=== PATIENT | male | born 1980 | race Caucasian/White ===

== ENCOUNTER 2016-12-01 19:43 | Emergency (ER) | payer MEDICAID ==
[~2016-12-01] VITALS: Ht 182.9 cm; Wt 77.1 kg
[~2016-12-01 19:43] MED LIST: CLON1TAB3 PO
[2016-12-01 21:05] VITALS: BP 115/71
[2016-12-01] MEDS ORDERED: BACITRACIN TOP OINT 1 UD PKG TOP ONE (23:30)
[2016-12-01] MEDS ORDERED: LIDOCAINE 1% HCL (LOCAL ANESTH.) INJ 20ML MDV IJ ONE (23:30)
[2016-12-02] MEDS ORDERED: TETANUS-DIPTH-ACEL PERTUSSIS 0.5ML SYRG IM ONE (00:15)
[2016-12-02] MEDS ORDERED: CLINDAMYCIN 600 MG/4 ML VL IM ONE (01:30)
== END 2016-12-02 02:23 | disposition home or self-care (01) ==
LOC: ER 19:55
DX: S92.422A Displaced fracture of distal phalanx of left great toe, initial encounter for closed fracture (principal); S91.232A Puncture wound without foreign body of left great toe with damage to nail, initial encounter; F17.210 Nicotine dependence, cigarettes, uncomplicated; Z88.0 Allergy status to penicillin; Z23 Encounter for immunization; W04.XXXA Fall while being carried or supported by other persons, initial encounter; Y93.89 Activity, other specified; Y99.8 Other external cause status; Y92.89 Other specified places as the place of occurrence of the external cause
CPT/HCPCS: 12042; 73630; 90471; 90715; 96372; 99284; J2001; L3260